=== PATIENT | female | born 1990 | race Asian ===

== ENCOUNTER 2024-05-27 09:06 | Outpatient (REF) | payer OTHER, SELFPAY ==
--- NOTE | 2024-05-27 07:30 | SKI_PTH ---
PATIENT: Candi Anne LOC: [facility] U#:[id number] AGE/SX: 33/F ROOM: RE05/27/[address]: Aauysh Mitchell MD : 1990 BED: DIS: 05/27/2024 SPEC #: [id number] RECD: 05/27/24 16:56 STATUS: ZENON RERomy #: [id number] GAYATHRI: 05/27/24 07:[address]: Aayush Mitchell DEPT: Surgical Specimen RECD BY: Collette Mondragon ENTERED: 05/27/24 16:57 SP TYPE: RASHEED FISHER DR: Karen Lipscomb APRN Tissues: 1 - SKIN BIOPSY(SHAVE/PUNCH) 2 - SKIN BIOPSY(SHAVE/PUNCH) Procedures: SKIN LEVEL 4 Comments: [id number]
== END 2024-05-27 09:07 | disposition home or self-care (01) ==
LOC: LBN 09:06
PROVIDERS: PCP Nurse Practitioner; Visit Provider Otolaryngology
DX: D22.39 Melanocytic nevi of other parts of face (principal)
CPT/HCPCS: 88305

== ENCOUNTER 2024-08-11 15:39 | Emergency (ER) | payer OTHER, SELFPAY ==
[2024-08-11 15:53] VITALS: BP 136/82; PULSE 75; RESP 20; TEMP 36.7; O2SAT 94
--- NOTE | 2024-08-11 17:11 | W.ED.GENAD ---
Discharge Plan Disposition Patient Disposition: Home Discharge Details Clinical Impression: Right facial swelling Primary Care Provider: Karen Lipscomb ED Provider: Landry Pratt Home Meds and New Rx's Prescriptions: Continued ibuprofen 200 mg tablet 200 mg PO Q6H PRN escitalopram oxalate [Lexapro] 20 mg tablet 20 mg PO DAILY Qty: 90 1RF Blisovi 24 Fe 1 mg-20 mcg (24)/75 mg (4) tablet 1 tab PO DAILY Qty: 84 1RF Rx Instructions: Omit placebo week Discharge Instructions Additional Instructions: You were seen in the emergency department for your right facial swelling. Your CAT scan showed no sign of any dangerous processes in your head. You received steroids which should improve your symptoms. As we discussed if you develop any weakness in any of your extremities if you develop worsening facial swelling or difficulty seeing please return to the emergency department. Otherwise please follow-up with primary care provider as needed. HPI General Date/Time Provider Initiated Documentation: 08/11/24 16:17. HPI Narrative: MDM This is an uncomfortable appearing normothermic and not tachycardic 33-year-old female with decreased right-sided facial sensation and swelling concerning for the possibility of cerebral venous sinus thrombosis for which patient will undergo CT venogram with maxillofacial cuts. No nuchal rigidity to suggest meningitis so no indication for lumbar puncture. Not altered to suggest encephalitis. No pain out of proportion to suggest necrotizing soft tissue infection. No rash to face to suggest zoster. No history of polymyalgia rheumatica to suggest increased risk for giant cell arteritis. Patient has intact facial nerves beyond mild sensory changes to her right face and as result my suspicion is low for CVA so I did not feel patient requires CT angiogram of her head and neck. No tonic-clonic activity to suggest seizures and no indication for EEG. No dental pain to suggest odontogenic infection. I considered sepsis however the patient has reassuring vitals. Headache was not sudden onset so I am not suspicious for subarachnoid hemorrhage I do not feel patient requires a lumbar puncture. No recent chiropractic manipulation to suggest increased risk for cervical arterial dissection. No recent generator exposure to suggest carbon monoxide toxicity. Patient is not markedly hypertensive making my suspicion low for reversible cerebral vasoconstriction syndrome low. If the patient has reassuring imaging will treat with dexamethasone in the event that there is a component of allergic reaction. Given rapidity of symptom onset with no preceding URI symptoms my suspicion for a sinusitis is low so we will defer antibiotics. 11:21 PM Patient had a reassuring CT scan of her head with no signs of cerebral venous sinus thrombosis. CT face had no acute abnormalities. I gave her a dose of dexamethasone. We discussed that she should return if she developed worsening pain in any interest swelling or any fevers. She understood her return indications and was discharged with empiric trial of expectant outpatient management. HPI The patient presents for evaluation of right-sided facial swelling and headache. She reports awakening at 9 AM with right-sided facial swelling, accompanied by a severe headache that persists. The intensity of the headache was leydi to a migraine, rendering with decreased energy for several hours, necessitating rest. She typically experiences seasonal allergies, which manifest as bilateral eye swelling, but this morning, the swelling was confined to one side of her face. She also reports a sensation of heat earlier in the day, but this has since subsided. She does not report any fever or limb weakness but admits to feeling fatigued. She is uncertain if these symptoms are indicative of a severe allergic reaction or a consequence of her headache. She does not report any dental pain and does not believe her symptoms are related to a dental issue. She describes a sensation of heaviness in her head and feels the need to lean back or forward. She has not been exposed to any unusual substances or environments. She is on oral contraceptive pills or hormones. She does not smoke but admits to occasional alcohol consumption, limited to one or two drinks. She does not use illicit substances. She is uncertain of the cause of her current symptoms, but notes that they are more severe than her usual seasonal allergy symptoms, which typically include sinus issues and itching and swelling of both eyes. She attempted to alleviate her symptoms with Claritin, a medication she usually takes, but found it ineffective. She sought advice from her regular healthcare provider, who expressed concern about the unilateral nature of the swelling and advised her to seek immediate medical attention. The onset of her headache was yesterday evening, prior to the facial swelling, and was initially mild but escalated in severity, necessitating rest. The headache recurred during a period of heavy lifting while assisting her mother with moving items in the basement. Despite going to bed early due to the worsening headache, she woke up with persistent headache and new-onset facial swelling. She does not report any nausea or vomiting but reports dizziness and increased sensitivity to light and sound, suggestive of a migraine. She has a history of chronic headaches and migraines, which have been infrequent in recent years. She has not undergone any recent chiropractic manipulation or physical therapy. Her current headache is not severe, but it is persistent, and she feels extremely fatigued, necessitating constant rest. She attempted to manage her headache with ibuprofen, which provided some relief, but the headache persists. Exam General: Well-appearing in no acute distress speaking in complete sentences. Head: Normocephalic, atraumatic. Eye:[Pupils equal, round reactive to light.] Extraocular eye movements intact. No conjunctival injection. No scleral icterus. Ear, nose, mouth, throat: Mild right-sided facial swelling. Uvula midline. No significant posterior oropharynx erythema. Normal voice, handling secretions normally. Neck: Trachea midline. Cardiovascular: Well-perfused distal extremities. Respiratory: Nonlabored respiration. Gastrointestinal: Nondistended abdomen. Musculoskeletal: No edema. Moving all 4 extremities spontaneously. Skin: Normal for age and race, grossly normal temperature and turgor. No acute rash. Neurologic: Alert and appropriate, no apparent acute deficits. Cranial nerves II through XII intact grossly. 5 out of 5 bilateral upper extremity strength. Psychiatric: Mood and manner are appropriate. Grooming and personal hygiene are appropriate. Related Data Home Medications ?Medication ?Instructions ?Recorded ?Confirmed ibuprofen 200 mg tablet 200 mg PO Q6H PRN 05/10/23 08/11/24 escitalopram oxalate 20 mg tablet 20 mg PO DAILY #90 tabs 06/10/24 08/11/24 (Lexapro) norethindrone 1 mg-ethinyl 1 tab PO DAILY #84 tabs 06/18/24 08/11/24 estradiol 20 mcg (24)-iron 75 mg (4) tablet (Blisovi 24 Fe) Previous Rx's ?Medication ?Instructions ?Recorded escitalopram oxalate 20 mg tablet 20 mg PO DAILY #90 tabs 06/10/24 (Lexapro) norethindrone 1 mg-ethinyl 1 tab PO DAILY #84 tabs 06/18/24 estradiol 20 mcg (24)-iron 75 mg (4) tablet (Blisovi 24 Fe) Allergies Allergy/AdvReac Type Severity Reaction Status Date / Time seasonal allergies Allergy Intermediate hayfever, Uncoded 08/11/24 15:59 itchy eyes, runny nose General Stated Complaint: Allergic HARVEY: 3 Course Vital Signs Vital signs: Vital Signs Temperature 36.7 C 08/11/24 15:53 Pulse 75 08/11/24 15:53 Respiratory Rate 20 08/11/24 15:53 Blood Pressure 136/82 08/11/24 15:53 Pulse Oximetry 94 08/11/24 15:53 Temperature 36.7 C 08/11/24 15:53 Pulse 75 08/11/24 15:53 Respiratory Rate 20 08/11/24 15:53 Respiratory Effort Normal, Non-Labored 08/11/24 16:57 Respiratory Pattern Normal 08/11/24 16:57 Blood Pressure 136/82 08/11/24 15:53 Blood Pressure Position Sitting 08/11/24 15:53 Pulse Oximetry 94 08/11/24 15:53 Oxygen Delivery Method Room Air 08/11/24 15:53 Oxygen Flow Rate 0 08/11/24 15:53 Medical Decision Making Quality:SDOH Health Related Social Needs: No Data to Display PFSH All Active Problems (Updated 08/11/24 @ 21:59 by Landry Pratt MD) Right facial swelling (Acute) Skin lesion of face (Acute) Rash (Acute) Depression (Chronic) Chronic low back pain (Chronic) Migraine headache (Chronic) Acne (Acute) Reactive airway disease (Acute) Pulmonic valve stenosis (Acute) Medical History Multiple nevi (~11/2023) Surgical History Hx of appendectomy Family History Maternal Grandfather Alcohol use disorder Mother Anxiety Depression Father Asthma Diabetes Social History Smoking/Tobacco Use Status: Never Second Hand Exposure: No Smoking risk assessment performed?: Yes Alcohol Intake: current Alcohol Intake frequency: holidays/special occasions only Drug use: Never Counseling given: No Adopted: No Caregiver/Support person: No Foster care: No Housing: apartment Number of Children: 0 number of grandchildren: 0 Communication Needs: None Education Level: college Do you need help understanding health information?: Never current occupation: [employer] Installer Pets and animals: Yes (One dog) Pets and animals: dog(s) Sexually active: Yes Do you think of yourself as: straight/heterosexual Current gender identity: female What is your relationship status?: never How often do you talk on the phone with friends or family?: three or more times per week How often do you get together with friends or relatives?: once per week Do you belong to any clubs or organized social groups?: yes Panel score (0-1 are the most socially isolated patients): 2 What type of physical activity do you participate in: walking and additional Details: Pilates Duration: 30-45 minutes/day Frequency: 3-4 times per week Marina/Buddhist: None Special marina needs: No Seatbelt use: always Helmet use: No Drive intox or ride w/intox delivery route driver: No Working smoke detector in home: Yes Carbon monox detector in home: Yes PAWSS Have you Been Recently Intoxicated or Drunk Within the Last 30 days?: No Have you Ever Experienced Previous Episodes of Alcohol Withdrawal?: No Have you ever Experienced Withdrawal Seizures?: No Have you ever Experienced Delirium Tremens(DT)s?: No Have you ever undergone Alcohol Rehabilitation Treatment (i.e, inpt ot outpatient treatment programs)?: No Have you ever Experienced Blackouts?: No Have you ever Combined Alcohol with other Downers within the last 90 days?: No Have you ever Combined Alcohol with any other Substance of Abuse during the last 90 days?: No Positive Blood Alcohol level on Presentation? [PCS.BAL]: No Evidence of Increased Autonomic Activity (i.e. HR>120, tremor, sweating, agitation, nausea)?: No Result: 0
[2024-08-11 17:56] LABS: Abs Immature Grans 0.01 10^3/uL (0.0-0.06); Absolute Basophil Count 0.03 10^3/uL (0.0-0.2); Absolute Eosinophil Count 0.51 10^3/uL (0.0-0.7); Absolute Monocyte Count 0.47 10^3/uL (0.1-0.8); Absolute Neutrophil Count 2.86 10^3/uL (1.2-6.7); Basophils % 0.5 %; HCT 37.6 % (36.0-46.0); HGB 12.3 g/dL (11.2-15.7); Immature Grans % 0.2 %; Lymphocytes % 31.7 %; MCH 28.5 pg (27.0-33.0); MCHC 32.7 % (32.0-36.0); MCV 87 fL (80-95); MPV 8.2 fL (8.0-11.0); Monocytes % 8.3 %; Neutrophils % 50.3 %; Platelet Count 356 10^3/uL (130-400); RBC 4.31 10^6/uL (3.93-5.22); RDW 12.1 % (11.7-14.6); RDW-SD 39.1 fL; WBC 5.68 10^3/uL (4.4-10.8)
[2024-08-11 18:20] LABS: BUN 7 mg/dL (7-18); CREATININE 0.6 mg/dL (0.55-1.02); Calcium 9.1 mg/dL (8.5-10.1); Chloride 104 mmol/L (98-107); Estimated GFR 122.99 (mL/min/1.73m2); Glucose 77 mg/dL (74-106); Potassium 4.4 mmol/L (3.5-5.1); Sodium 138 mmol/L (136-145)
[2024-08-11 18:34] LABS: HCG Qual (Serum) Negative
[2024-08-11] MEDS: Normal Saline - Diluent 50 ML VIAL IJ (18:43)
--- NOTE | 2024-08-11 21:08 | DI.CT_ITS ---
Exam(s) CT FACIAL WO EXAM: CT FACIAL WO CLINICAL HISTORY: Right-sided facial pain. TECHNIQUE: Imaging Protocol: Axial computed tomography images with coronal and sagittal reformatted images were created and reviewed. No IV contrast COMPARISON: CT CT HEAD WO/W from 08/11/2024 FINDINGS: MAXILLOFACIAL CT SCAN: There is no evidence of facial fractures nor fluid the visualized paranasal sinuses. Ostiomeatal uni ts are patent. There is no evidence of orbital blowout fracture. No evidence of nasal bone fracture . Nasal septum is intact. Zygomatic arches are intact. Orbits appear unremarkable. Mandible unremarkable. Soft tissues: No abnormal masses nor fluid collections. IMPRESSION: No significant findings RADIATION DOSE DELIVERED: 2,129.61mGy.cm Total DLP DATA REPOSITORY: All CT scans at this facility are submitted to the National Radiology Data Registry (NRDR) Dose Index Registry (DIR) with the [employer] ([employer]). RADIATION OPTIMIZATION: All CT scans at this facility use at least one of these dose optimization te chniques: automated exposure control; mA and/or kV adjustment per patient size (includes targeted exa ms where dose is matched to clinical indication); or iterative reconstruction.
--- NOTE | 2024-08-11 21:08 | DI.CT_ITS ---
Exam(s) CT HEAD WO/W EXAM: CT HEAD WO/W CLINICAL HISTORY: Please complete CT venogram right-sided headache. TECHNIQUE: Imaging Protocol: Both noninfused and contrast infused CT scans of the brain were perform ed. IV Contrast Dose =100 cc Axial computed tomography images with coronal and sagittal reformatted images were created and review ed COMPARISON: No exams were available for comparison FINDINGS: There are no skull fractures nor fluid in the visualized paranasal sinuses. There is no evidence of intracranial hemorrhage, mass effect, or shift of midline structures. There are no extra-axial fluid collections. The ventricles are not enlarged or shifted and there is no blo od within the ventricular system nor within the basal cisterns. There are no ring enhancing lesions in the brain and there is no abnormal meningeal enhancement, foca l or diffuse. No obvious evidence of venous sinus thrombosis. IMPRESSION: No significant intracranial findings. No evidence of obvious venous sinus thrombosis.. No ring enhancing lesions in the brain and no abnormal meningeal enhancement. Preliminary virtual Radiology report was reviewed. RADIATION DOSE DELIVERED: 2,129.61mGy.cm Total DLP DATA REPOSITORY: All CT scans at this facility are submitted to the National Radiology Data Registry (NRDR) Dose Index Registry (DIR) with the [employer] (ACR). RADIATION OPTIMIZATION: All CT scans at this facility use at least one of these dose optimization te chniques: automated exposure control; mA and/or kV adjustment per patient size (includes targeted exa ms where dose is matched to clinical indication); or iterative reconstruction.
[2024-08-11] MEDS: Omnipaque 350 MG/ML 100 ML BTL IJ (21:09)
--- NOTE | 2024-08-11 21:33 | DI.VRAD_ITS ---
PROCEDURE INFORMATION: Exam: CT Maxillofacial Without Contrast Exam date and time: 08/11/2024 8:11 PM Age: 33 years old Clinical indication: Other: Right-sided facial pain TECHNIQUE: Imaging protocol: Computed tomography of the face without contrast. COMPARISON: CT HEAD WO/W 08/11/2024 8:11 PM FINDINGS: Paranasal sinuses: Unremarkable. No air-fluid levels. Orbital cavities: Globes are intact. Intraconal fat is normal. Bones: No acute fracture. Soft tissues: Unremarkable. IMPRESSION: No acute findings. Dictated and Authenticated by: Ho Elam MD. Orderin Santa Alatorre MD
--- NOTE | 2024-08-11 21:57 | DI.VRAD_ITS ---
PROCEDURE INFORMATION: Exam: CTA Head With Contrast, Venography Exam date and time: 08/11/2024 8:11 PM Age: 33 years old Clinical indication: Other: Right-sided headache TECHNIQUE: Imaging protocol: Computed tomography angiography of the head with contrast. Exam focused on the veins. 3D rendering (Not supervised by radiologist): MIP and/or 3D reconstructed images were created by the technologist. Contrast material: OMNIPAQUE 350; Contrast volume: 100 ml; Contrast route: INTRAVENOUS (IV); COMPARISON: CT FACIAL WO 08/11/2024 8:11 PM FINDINGS: Superior sagittal sinus: Patent. Straight sinus: Patent. Transverse sinuses: Patent. Sigmoid sinuses: Patent. Internal jugular veins: Limited visualized internal jugular veins are patent. Brain: No definite mass, mass effect, or midline shift. Cerebral ventricles: No ventriculomegaly. Soft tissues: Unremarkable. IMPRESSION: No venous thrombosis. Dictated and Authenticated by: Ho Elam MD. Orderin Santa Alatorre MD
[2024-08-11] MEDS: Dexamethasone 4 MG TAB 8 MG PO (22:13)
== END 2024-08-11 22:15 | disposition home or self-care (01) ==
PROVIDERS: Emergency Provider Emergency Medicine; PCP Nurse Practitioner
DX: R22.0 Localized swelling, mass and lump, head (principal); R51.9 Headache, unspecified; R42 Dizziness and giddiness
CPT/HCPCS: 80048; 99285; 70470; 70486; 84703; 85025; 99284; J3490; J8540